=== PATIENT | male | born 1985 | race Caucasian/White ===

== ENCOUNTER 2016-11-23 23:16 | Inpatient (IN) | payer OTHER ==
[~2016-11-23] VITALS: Ht 188 cm; Wt 93.3 kg
[~2016-11-23 23:16] MED LIST: ADDERALL XR 3030 MG PO; HYDROXYZINE PAM25 MG PO; KLONOPIN0.5 M1 PO; LITHIUM CARBON300 M1 PO; LITHIUM CARBON300 MG PO; LOTRISONE15 GM TP; SEROQUEL300 MG PO
[2016-11-24 01:59] LABS: BASOPHIL COUNT 0.1 K/uL (0-0.1); EOSINOPHIL (%) 2.2 % (0-5); EOSINOPHIL COUNT 0.2 K/uL (0-0.3); HEMATOCRIT 38.1 % (38.0-50.0); IMMATURE GRANULOCYTE (%) 0.2 % (0.0-0.7); INSTRUMENT ABS NEUTROPHIL CT 4.6 K/uL; MCH 30.9 PG (29.0-34.0); MCHC 34.4 G/DL (30.0-36.0); MCV 89.9 FL (86-99); MEAN PLAT.VOLUME 10.6 uM^3 (9.0-12.4); MONOCYTE COUNT 0.7 K/uL (0-0.8); NEUTROPHIL (%) 53.8 % (45-76); NEUTROPHIL COUNT 4.6 K/uL (1.8-6.4); PLATELET COUNT 168 K/uL (156-360); RBC DIS.WIDTH-CV 11.1 % (11.8-14.6); RBC DIS.WIDTH-SD 36.3 % (39-53); RED BLOOD COUNT 4.24 M/uL (4.00-5.50); WHITE BLOOD COUNT 8.6 K/uL (4.1-10.2)
[2016-11-24 02:08] LABS: CHLORIDE 110 mEq/L (99-109); POTASSIUM 3.9 mEq/L (3.7-5.4); SODIUM 145 mEq/L (136-147)
[2016-11-24 02:10] LABS: GLUCOSE 100 mg/dL (70-99)
[2016-11-24 02:11] LABS: ANION GAP 13 MEQ/L (2-14)
[2016-11-24 02:13] LABS: SERUM ETHYL ALCOHOL 55 mg/dL
[2016-11-24 02:14] LABS: GFR ESTIMATE (CALCULATED) > 59 mL/min/
[2016-11-24 02:15] LABS: UREA NITROGEN (BUN) 11 mg/dL (9-23)
[2016-11-24 03:47] LABS: AMPHETAMINE NEGATIVE (500 ng/mL); BARBITURATES NEGATIVE (200 ng/mL); BENZODIAZEPINES NEGATIVE (150 ng/mL); COCAINE NEGATIVE (150 ng/mL); INTERNAL CONTROLS VALID? YES; METHADONE NEGATIVE (200 ng/mL); METHAMPHETAMINE NEGATIVE (500 ng/mL); OPIATES (MORPHINE) NEGATIVE (100 ng/mL); OXYCODONE NEGATIVE (100 ng/mL); PHENCYCLIDINE NEGATIVE (25 ng/mL); PROPOXYPHENE NEGATIVE (300 ng/mL); THC CANNABINOIDS NEGATIVE (50 ng/mL); TRICYCLIC ANTIDEPRESSANTS NEGATIVE (300 ng/mL)
[2016-11-24] MEDS ORDERED: COGENTIN0.5 MG PO (09:14)
[2016-11-24] MEDS ORDERED: RISPERDAL0.5 MG PO (09:14)
[2016-11-24] MEDS ORDERED: ADDERALL20 MG PO (09:15)
[2016-11-24] MEDS ORDERED: KLONOPIN0.5 M1 PO (09:15)
[2016-11-24] MEDS ORDERED: ADVIL200 MG PO (09:16)
[2016-11-24 14:09] VITALS: BP 117/74
[2016-11-24 15:23] VITALS: BP 117/74
[2016-11-25 07:36] VITALS: BP 100/59
[2016-11-25 15:16] VITALS: BP 112/72
[2016-11-26 07:44] VITALS: BP 114/58
[2016-11-26] MEDS ORDERED: RISPERIDONE1 MG PO (10:41)
[2016-11-26] MEDS ORDERED: LITHIUM CARBON300 M2 PO (10:41)
== END 2016-11-26 12:35 | disposition home or self-care (01) | DRG 885 ==
LOC: EME 23:16 → EDOF 11-24 07:53 → 1WEST 11-24 07:53 → EDOF 11-24 12:12 → 1WEST 11-24 14:25
PROVIDERS: Emergency Medicine
DX: F31.2 Bipolar disorder, current episode manic severe with psychotic features (principal); F17.210 Nicotine dependence, cigarettes, uncomplicated; Z59.0 Homelessness; R45.851 Suicidal ideations
CPT/HCPCS: 80048; 85025; 90837; 97150 GO; 97165 GO; 99281; 99285; G0480

== ENCOUNTER 2017-02-27 10:36 | Emergency (ER) | payer OTHER ==
[~2017-02-27] VITALS: Ht 188 cm; Wt 99.3 kg
[~2017-02-27 10:36] MED LIST changes: +ADDERALL20 MG PO; +ADVIL200 MG PO; +COGENTIN0.5 MG PO; +LITHIUM CARBON300 M2 PO; +RISPERDAL0.5 MG PO; +RISPERIDONE1 MG PO
[2017-02-27 14:50] VITALS: BP 110/83
== END 2017-02-27 14:57 | disposition home or self-care (01) ==
LOC: EME 10:36
DX: R51 Headache (principal); H10.9 Unspecified conjunctivitis; R20.0 Anesthesia of skin; F17.200 Nicotine dependence, unspecified, uncomplicated
CPT/HCPCS: 70551; 99281; 99284